=== PATIENT | female | born 1965 | race Hispanic/Latino ===

== ENCOUNTER 2024-10-18 18:50 | Emergency (ER) | payer SELFPAY ==
[~2024-10-18] VITALS: Ht 154.9 cm; Wt 83.9 kg
[2024-10-18 18:52] VITALS: BP 151/94; PULSE 77; RESP 16; TEMP 98.7
[2024-10-18 19:14] LABS: BASOPHILS # (AUTO) 0.04 K/uL (0.00-0.20); BASOPHILS % (AUTO) 0.4 % (0.0-5.0); EOSINOPHILS # (AUTO) 0.07 K/uL (0.00-0.70); EOSINOPHILS % (AUTO) 0.8 % (0.0-8.0); HEMATOCRIT 43.3 % (36-48); IMMATURE GRANULOCYTE ABSOLUTE 0.03 K/uL (0-1); LYMPHOCYTES # (AUTO) 2.5 K/uL (1.0-4.8); LYMPHOCYTES % (AUTO) 26.5 % (21.0-51.0); MEAN CORPUSCULAR HEMOGLOBIN 28.9 pg (27.0-33.0); MEAN CORPUSCULAR HGB CONC 32.8 g/dL (32.0-36.0); MEAN CORPUSCULAR VOLUME 88.2 fL (79-99); MONOCYTES # (AUTO) 0.6 K/uL (0.1-1.0); MONOCYTES % (AUTO) 6.8 % (3.0-13.0); NEUTROPHILS # (AUTO) 6.1 K/uL (1.8-7.7); NEUTROPHILS % (AUTO) 65.2 % (40.0-77.0); PLATELET COUNT (AUTO) 313 K/uL (130-400); RED BLOOD CELL COUNT(AUTO) 4.91 MIL/uL (4.00-5.50); RED CELL DISTRIBUTION WIDTH 12.4 % (11.0-15.5); WHITE BLOOD COUNT (AUTO) 9.3 K/uL (4.8-10.8)
[2024-10-18 19:23] LABS: CREATININE 0.7 mg/dL (0.5-1.0); POTASSIUM 3.7 mmol/L (3.5-5.1)
[2024-10-18 19:32] LABS: ALBUMIN 3.9 g/dL (3.5-5.0); BILIRUBIN,DIRECT 0.1 mg/dL (0.0-0.3); BILIRUBIN,TOTAL 0.6 mg/dL (0.2-1.0); TOTAL PROTEIN, SERUM 7.7 g/dL (6.0-8.3)
[2024-10-18 20:49] LABS: APPEARANCE,URINE CLEAR (CLEAR); BILIRUBIN,URINE NEGATIVE (NEGATIVE); COLOR,URINE YELLOW (YELLOW); GLUCOSE, URINE (UA) NEGATIVE (NEGATIVE); KETONES,URINE 10 mg/dL (NEGATIVE); LEUKOCYTE ESTERASE ,URINE 500 Leu/uL (NEGATIVE); NITRATE,URINE NEGATIVE (NEGATIVE); OCCULT BLOOD,URINE SMALL (NEGATIVE); PROTEIN,URINE 20 mg/dL (NEGATIVE); UROBILINOGEN,URINE 0.2 mg/dL (0.2-1.0)
[2024-10-18 20:56] LABS: ADD UA MICROSCOPIC YES
[2024-10-18 21:00] LABS: BACTERIA,URINE RARE /HPF (None Seen); HYALINE CASTS, URINE 0-1 /LPF (0-1 /LPF); MUCUS,URINE FEW LPF (None Seen); NON-SQUAMOUS EPITHELIAL CELL <1 /HPF (0-2); SQUAMOUS EPITHELIAL CELL,UR FEW /HPF (0-2)
[2024-10-19] MEDS ORDERED: FAMO-136 PO (00:06)
[2024-10-19] MEDS ORDERED: ONDA-243 PO (00:06)
--- NOTE | 2024-10-19 00:08 | ERN ---
General Chief Complaint: Abdominal Pain Stated Complaint: CHEST PAIN Time Seen by MD: 18:56 Time Seen by Midlevel: 18:56 Source: patient History of Present Illness Initial Comments Patient is a 59-year-old female with a past medical history of pancreatitis presenting to the emergency department with midepigastric abdominal pain that started earlier today. She reports associated nausea but no vomiting. Denies any fever, chills, or any other symptoms at this time. Allergies: Coded Allergies: Sulfa (Sulfonamide Antibiotics) (Unverified Allergy, Unknown, 10/18/24) Past Medical History Past Medical History: Anxiety Medical History Other: PANCREATITIS, GASTRITIS Past Surgical History: ROS Dictation CONSTITUTIONAL: Negative except for HPI HEAD/FACE: Negative except for HPI EENT: Negative except for HPI RESPIRATORY: Negative except for HPI GASTROINTESTINAL/ABDOMINAL: Negative except for HPI GENITOURINARY: Negative except for HPI MUSCULOSKELETAL: Negative except for HPI INTEGUMENTARY: Negative except for HPI NEUROLOGICAL/PSYCH: Negative except for HPI HEMATOLOGIC/LYMPHATIC: Negative except for HPI All Systems Negative, Except as noted above. 13 point review of systems assessed and all negative except for above. Physical Exam Physical Exam Dictation Vital Signs reviewed General Appearance: Alert, oriented x 3, no acute distress, well developed, nourished. Head and Face: non-traumatic. Eyes: PERRL, pink conjunctivas, eyelid no trauma, anterior chamber with arcus senilis. Ears: Pinnas intact and no signs of trauma or erythema ear canals clear and no discharge TM no erythema Nose: No discharge, no bleeding. Oropharynx: Mouth normal, tongue pink, pharynx clear,no erythema, tonsils no exudates, no abscesses noted, mucous membrane moist Neck: Supple, non-tender, no thyromegaly, no masses, no JVD, no bruits Breast:Deferred Chest:No tenderness, no crepitus, no paradoxical movement, no retractions Lungs:Clear, well-ventilated, symmetric, no rales, no wheezing, no rhonchi, no stridor, good breath sounds bilaterally Heart: Regular rate, regular rhythm, no murmur, no gallops Vascular: no peripheral edema, Abdomen: Soft, positive bowel sounds, nondistended, no guarding, Midepigastric abdominal tenderness, no rebound, no masses no hepatomegaly, no splenomegaly, no Melchor's sign, no hernias. Rectal: Deferred Genital: Deferred Neurological: Normal speech, motor function intact, sensory function intact Musculoskeletal: Neck nontender, full range of motion, back nontender, full range of motion, Extremities: nontender, full range of motion Skin: Color pink, dry, no turgor, no rash, no lacerations, no abrasions, no contusions. Lymphatic: Deferred Results Laboratory and Microbiology Lab and Micro Result Laboratory Tests Test 10/18/24 19:07 10/18/24 20:27 White Blood Count 9.3 K/uL (4.8-10.8) Red Blood Count 4.91 MIL/uL (4.00-5.50) Hemoglobin 14.2 g/dL (12.0-16.0) Hematocrit 43.3 % (36-48) Mean Corpuscular Volume 88.2 fL (79-99) Mean Corpuscular Hemoglobin 28.9 pg (27.0-33.0) Mean Corpuscular Hemoglobin Concent 32.8 g/dL (32.0-36.0) Red Cell Distribution Width 12.4 % (11.0-15.5) Platelet Count 313 K/uL (130-400) Mean Platelet Volume 10.0 fL (7.5-10.5) Immature Granulocyte % (Auto) 0.3 % (0-1) Neutrophils (%) (Auto) 65.2 % (40.0-77.0) Lymphocytes (%) (Auto) 26.5 % (21.0-51.0) Monocytes (%) (Auto) 6.8 % (3.0-13.0) Eosinophils (%) (Auto) 0.8 % (0.0-8.0) Basophils (%) (Auto) 0.4 % (0.0-5.0) Neutrophils # (Auto) 6.1 K/uL (1.8-7.7) Lymphocytes # (Auto) 2.5 K/uL (1.0-4.8) Monocytes # (Auto) 0.6 K/uL (0.1-1.0) Eosinophils # (Auto) 0.07 K/uL (0.00-0.70) Basophils # (Auto) 0.04 K/uL (0.00-0.20) Absolute Immature Granulocyte (auto 0.03 K/uL (0-1) Nucleated Red Blood Cells 0.0 % (0.0-0.19) Sodium Level 139 mmol/L (136-145) Potassium Level 3.7 mmol/L (3.5-5.1) Chloride Level 104 mmol/L (101-111) Carbon Dioxide Level 29 mmol/L (21-32) Blood Urea Nitrogen 10 mg/dL (7-18) Creatinine 0.7 mg/dL (0.5-1.0) Glomerular Filtration Rate Calc 101 mL/min (>90) Random Glucose 93 mg/dL (70-105) Total Calcium 9.0 mg/dL (8.5-10.1) Total Bilirubin 0.6 mg/dL (0.2-1.0) Direct Bilirubin 0.1 mg/dL (0.0-0.3) Aspartate Amino Transf (AST/SGOT) 31 U/L (10-37) Alanine Aminotransferase (ALT/SGPT) 50 U/L (12-78) Alkaline Phosphatase 90 U/L (50-136) Troponin I High Sensitivity 9 ng/L (4-50) Total Protein 7.7 g/dL (6.0-8.3) Albumin 3.9 g/dL (3.5-5.0) Lipase 127 U/L (16-77) H Urine Color YELLOW (YELLOW) Urine Appearance CLEAR (CLEAR) Urine pH 6.0 (5.0-8.0) Urine Specific [place] 1.029 (1.001-1.031) Urine Protein 20 mg/dL (NEGATIVE) H Urine Glucose (UA) NEGATIVE mg/dL (NEGATIVE) Urine Ketones 10 mg/dL (NEGATIVE) H Urine Occult Blood SMALL (NEGATIVE) H Urine Nitrate NEGATIVE (NEGATIVE) Urine Bilirubin NEGATIVE mg/dL (NEGATIVE) Urine Urobilinogen 0.2 mg/dL (0.2-1.0) Urine Leukocyte Esterase 500 [place]/uL (NEGATIVE) H Urine RBC 11-25 /HPF (0-1) H Urine WBC 6-10 /HPF (0-1) H Urine Squamous Epithelial Cells FEW /HPF (0-2) Urine Non-Squamous Epithelial Cells <1 /HPF (0-2) Urine Bacteria RARE /HPF (None Seen) Urine Hyaline Casts 0-1 /LPF (0-1 /LPF) Labs Reviewed?: Yes MDM MDM: Patient is a 59-year-old female with a past medical history of pancreatitis presenting to the emergency department with midepigastric abdominal pain that started earlier today. She reports associated nausea but no vomiting. Denies any fever, chills, or any other symptoms at this time. On physical examination patient has mild epigastric abdominal tenderness but no rebound or guarding. CBC and chemistries are stable. Lipase is slightly elevated at 120. Patient reports being in continues pain. Offered morphine or Toradol but she refuses would like further imaging performed. Ultrasound performed however pancreas was unable to be visualized. The remainder of her right upper quadrant ultrasound was unremarkable. Patient will be discharged home. No need for emergent intervention at this time. The patient has been sitting comfortably in the fast track area in no acute distress. Differential diagnosis: Pancreatitis, gastritis, gastroenteritis There are no social concerns with this patient. Prescription drug management Prescriptions will include: Zofran Pepcid Medical management and examination interpretation discussions were had by me with other qualified healthcare professionals as indicated for the patient's care. ED Course Orders Procedure Category Date Status Time 12 Lead Ekg Tracing- EKG 10/18/24 Logged Technical 18:56 Cbc With Differential LAB 10/18/24 Complete 18:57 Basic Metabolic Panel LAB 10/18/24 Complete 18:57 Hepatic Function Panel LAB 10/18/24 Complete 18:57 Lipase LAB 10/18/24 Complete 18:57 Troponin I High LAB 10/18/24 Complete Sensitivity 18:57 12 Lead Ekg Tracing- EKG 10/18/24 Logged Technical 18:57 Urinalysis Profile LAB 10/18/24 Complete 20:28 Culture Urine YIFAN 10/18/24 In Process 20:57 Us Abdominal Ruq\Ltd US 10/18/24 Taken 22:33 Vital Signs Date Time Temp Pulse Resp B/P (MAP) Pulse Ox O2 Delivery O2 Flow Rate FiO2 10/18/24 18:52 98.8 77 16 151/94 99 Room Air 0 DX & DISP Disposition: Discharge Departure Impression: Primary Impression: Epigastric abdominal pain Additional Impression: Gastritis Condition: Stable Scripts Famotidine (Pepcid) 20 Mg Tablet 1 TAB PO BID for 30 Days, #60 TAB 0 Refills Prov: JOAO ONEILL 10/19/24 Ondansetron (Ondansetron Odt) 4 Mg Tab.rapdis 4 MG PO BID for 7 Days, #14 TAB Prov: JOAO ONEILL 10/19/24 Additional Instructions: Your blood work today is unremarkable. Your lipase level was slightly elevated at 124. Your liver function tests are unremarkable. Your right upper quadrant ultrasound does not show any evidence of pancreatitis. You need to follow up with your primary care doctor for possible referral to GI for further evaluation. Time of Disposition: 00:03 I have reviewed the case, and I agree with, Diagnosis and Plan I performed the substantive portion of the visit. I have reviewed and personally made and approve the management plan that is documented in the note by myself or the BYRON. I acknowledge for responsibility for the patient's management plan. JOAO ONEILL Oct 19, 2024 00:08
--- NOTE | 2024-10-19 06:37 | EKG ---
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
--- NOTE | 2024-10-19 09:16 | HMCIMG ---
US ABDOMINAL RUQ\E\LTD HISTORY: ruq/mid epigastric abd pain TECHNIQUE: US ABDOMINAL RUQ\E\LTD. FINDINGS: LIVER: The liver demonstrates normal echogenicity without focal lesions. Liver measures 14.5 cm. GALLBLADDER: Surgically removed. CBD: Measures up to 0.3cm. PANCREAS: The pancreas was not well visualized due to overlying bowel gas. RIGHT KIDNEY: measures 9.6cm in length. No hydronephrosis or calculi. Study is degraded to prominent bowel gas. Possible subcutaneous lipoma in the right upper quadrant measuring 1.8 cm the left upper quadrant measuring 1.8 cm. IMPRESSION: Study is degraded to prominent bowel gas. Possible subcutaneous lipoma in the right upper quadrant measuring 1.8 cm and the left upper quadrant measuring 1.8 cm. Cholecystectomy.
== END 2024-10-19 00:33 | disposition home or self-care (01) ==
LOC: EDH 18:50
DX: K29.70 Gastritis, unspecified, without bleeding (principal); R10.13 Epigastric pain; F41.9 Anxiety disorder, unspecified; Z88.2 Allergy status to sulfonamides; Z98.890 Other specified postprocedural states
CPT/HCPCS: 36415; 76705; 80048; 80076; 81001; 83690; 84484; 85025; 87086; 93005; 99284